=== PATIENT | female | born 1995 | race African-American/Black ===

== ENCOUNTER 2023-05-18 05:35 | Inpatient (IN) ==
[2023-05-18] MEDS ORDERED: Buffered Lidocaine 1% SYRIN 1 ml INTRADERM ONE (07:31)
[2023-05-18] MEDS ORDERED: Lactated Ringers 1000 ml BAG 1,000 ML IV ONE ×2 (07:31→13:25)
[2023-05-18] MEDS ORDERED: Nalbuphine 10 MG/ML 1 ML VIAL IV PRN (07:31)
[2023-05-18] MEDS ORDERED: Promethazine INJ(RESTRICTED) 25 MG/ML 1 ml VIAL IV PRN (07:31)
[2023-05-18] MEDS ORDERED: Lactated Ringers 1000 ml BAG 1,000 ML IV SCH ×2 (08:00→14:00)
[2023-05-18 11:24] LABS: ABS Eosinophils 0.1 10^3/uL (0.0-0.5); ABS Lymphocytes 1.4 10^3/uL (1.0-4.8); ABS Monocytes 0.8 10^3/uL (0.0-0.9); ABS Neutrophils 9.5 10^3/uL (1.5-7.6); Eosinophil % 0.4 %; Hematocrit 29.3 % (35-45); Hemoglobin 9.9 g/dL (11.5-14.3); Lymphocyte % 12.2 %; Mean Corpuscular Hemoglobin 29.2 pg (27-33); Mean Corpuscular Hgb Conc 33.9 g/dL (31-36); Mean Platelet Volume 8.5 fL (7.5-11.2); Platelet Count 233 10^3/uL (150-450); Red Blood Count 3.41 10^6/uL (3.63-4.92); Red Cell Distribution Width 14.4 % (12-17); White Blood Count 11.8 10^3/uL (3.8-11.8)
[2023-05-18 11:38] LABS: Urine Appearance Cloudy; Urine Bilirubin Negative (Negative); Urine Blood Negative (Negative); Urine Color Yellow; Urine Glucose Negative (Negative); Urine Ketones Negative (Negative); Urine Nitrite Negative (Negative); Urine Protein Negative (Negative); Urine Specific Gravity 1.009 (1.002-1.030); Urine Urobilinogen Negative (Negative)
[2023-05-18] MEDS ORDERED: OBEPIDURAL (200 ML) 200 ML EPIDURAL ONE (12:15)
[2023-05-18] MEDS ORDERED: Lidocaine 1.5% EPI 1:200,000 30 ML SDV ONE (12:15)
[2023-05-18 12:22] LABS: Urine Benzodiazepine Screen None Detected (None Detect); Urine Cannabinoids Screen Presumptive Positive (None Detect); Urine Opiates Screen None Detected (None Detect)
[2023-05-18] MEDS ORDERED: fentaNYL 100 mcg/2 ml 50 MCG/ML VIAL IV SLOW PU PRN (12:37)
[2023-05-18 12:59] LABS: HIV 4th Generation Nonreactive (Nonreactive)
[2023-05-18] MEDS: OBEPIDURAL (200 ML) 200 ML EPIDURAL SCH (13:10)
[2023-05-18] MEDS ORDERED: Sodium Citrate/Citric Acid LIQ 15 ML UDC PO PRN (13:25)
[2023-05-18] MEDS ORDERED: Phenylephrine 40 mcg/mL 10mL (400mcg) SYRINGE IV PUSH PRN ×2 (13:25)
[2023-05-18] MEDS ORDERED: Oxytocin in LR 20,000 MILLI.UNIT/1,000 ML BAG IV SCH ×2 (16:15→21:15)
[2023-05-18] MEDS ORDERED: Witch Hazel PAD JAR TOPICAL PRN (21:04)
[2023-05-18] MEDS ORDERED: Glycerin ADULT 2.4 gm SUPP PR PRN (21:04)
[2023-05-18] MEDS ORDERED: Dibucaine 1% OINT 28.35 GM TUBE PR PRN (21:04)
[2023-05-19] MEDS: OBEPIDURAL (200 ML) 200 ML EPIDURAL SCH (01:26)
[2023-05-19 07:09] LABS: ABS Basophils 0.1 10^3/uL (0.0-0.1); ABS Lymphocytes 2.2 10^3/uL (1.0-4.8); ABS Monocytes 1.2 10^3/uL (0.0-0.9); ABS Nucleated RBC 0.01 10^3/ul; Eosinophil % 0.1 %; Hematocrit 24.4 % (35-45); Hemoglobin 8.2 g/dL (11.5-14.3); Lymphocyte % 10.5 %; Mean Corpuscular Hemoglobin 28.9 pg (27-33); Mean Corpuscular Hgb Conc 33.4 g/dL (31-36); Mean Corpuscular Volume 86.4 fL (80-97); Mean Platelet Volume 8.1 fL (7.5-11.2); Nucleated Red Blood Cells % 0.1 /100 WBC (0.0-0.4); Platelet Count 228 10^3/uL (150-450); Red Blood Count 2.83 10^6/uL (3.63-4.92); Red Cell Distribution Width 14.2 % (12-17); White Blood Count 20.5 10^3/uL (3.8-11.8)
[2023-05-20 09:26] VITALS: BP 123/78
[2023-05-20] MEDS ORDERED: HYDROcodone/ACETAMIN 5/325 mg TAB PO ONE (11:41)
== END 2023-05-20 15:56 | disposition home or self-care (01) | DRG 560 ==
LOC: MCHOBOUT 05:35 → MCHOB 07:30
PROVIDERS: ADMIT Obstetrics & Gynecology; ATTEND Midwife